=== PATIENT | female | born 1980 | race Caucasian/White ===

== ENCOUNTER 2016-08-18 10:49 | Emergency (ER) | payer SELFPAY ==
[~2016-08-18] VITALS: Ht 162.6 cm; Wt 87.8 kg
[~2016-08-18 10:49] MED LIST: PRED20 PO
[2016-08-18 11:01] VITALS: BP 131/91; PULSE 107; RESP 16; TEMP 99.6; O2SAT 98
--- NOTE | 2016-08-18 11:33 | PD ---
HPI Chief Complaint: Cold / Flu Symptoms Time Seen by Provider: 11:32 Travel History International Travel<30 days: No Contact w/Intl Traveler<30days: No Traveled to known affect area: No History of Present Illness HPI 35-year-old female with PMH of lupus presents to ED for evaluation of less than 48 hour history of sore throat, right ear pain, clear rhinorrhea, nonproductive cough and subjective fevers. Patient states she was feeling well yesterday morning, symptoms developed during the course of the day. She states that she coughed "all night" which kept her from sleeping. She states that she treated with aspirin with no improvement of symptoms. Denies sick contacts. Patient is a current smoker. Patient takes no daily medications. PFSH Past Medical History Anemia: Yes Asthma: Yes (SEASONAL) Depression: Yes (MANIC DEPRESSIVE) Diminished Hearing: No Genitourinary: Yes (KIDNEY INFECTIONS) Headaches: Yes Immune Disorder: Yes (LUPUS) Immunizations Current: Yes Migraines: Yes Pneumonia: Yes Tetanus Vaccination: < 5 Years Influenza Vaccination: Yes ?: Not LMP: 08/12/16 : 2 Para: 2 Ovarian Cysts: Yes Tubal Ligation: Yes Past Surgical History Abdominal Surgery: Yes (C-SEC X 2) Section: Yes (X 2) Social History Alcohol Use: Yes (occas. mix drink) Tobacco Use: Yes (4-5 cigs a day) Substance Use: No Allergies-Medications (Allergen,Severity, Reaction): Coded Allergies: Benadryl (Verified Allergy, Severe, "JITTERY AND SLEEPY AT SAME TIME", 03/27) Reported Meds & Prescriptions Reported Meds & Active Scripts Active Tessalon Perles (Benzonatate) 100 Mg Cap 200 Mg PO HS Review of Systems Except as stated in HPI: all other systems reviewed are Neg Physical Exam Narrative GENERAL: Well-nourished, well-developed white female in no acute distress. SKIN: Warm and dry. HEAD: Normocephalic. Atraumatic. EYES: No scleral icterus. No injection or drainage. PERRLA. EOMI. ENT: Air-fluid level present in the right tympanic membrane. Pearly escamilla tympanic membrane on the left. Nasal mucosa is moist. Posterior oropharynx with moderate erythema. Tonsils 1+ bilaterally. No edema or exudate. Uvula midline. Airway patent. NECK: Supple, trachea midline. No JVD. ++ Right-sided submandibular lymphadenopathy. CARDIOVASCULAR: Regular rate and rhythm without murmurs, gallops, or rubs. No carotid bruits. 2+ DP and radial pulses bilaterally. RESPIRATORY: Breath sounds clear and equal bilaterally. No accessory muscle use. GASTROINTESTINAL: Abdomen soft, non-tender, nondistended. + Bowel sounds MUSCULOSKELETAL: No cyanosis, or edema. Patient is ambulatory, walks with a normal gait. BACK: Nontender without obvious deformity. No CVA tenderness. Data Data Last Documented VS Vital Signs Date Time Temp Pulse Resp B/P Pulse Ox O2 Delivery O2 Flow Rate FiO2 08/18/16 11:09 16 98 Room Air 08/18/16 11:01 99.6 107 131/91 Orders Group A Rapid Strep Screen (08/18/16 11:38) Strep Culture (Group A) (08/18/16 11:45) MDM Medical Decision Making Medical Screen Exam Complete: Yes Emergency Medical Condition: Yes Differential Diagnosis Viral syndrome versus pharyngitis versus strep pharyngitis versus other Narrative Course 35-year-old female with PMH of lupus presents to ED for evaluation of less than 48 hour history of sore throat, right ear pain, clear rhinorrhea, nonproductive cough and subjective fevers. She states that she coughed "all night" which kept her from sleeping. Treated with aspirin with no improvement of symptoms. Denies sick contacts. Patient is a current smoker. Vitals reviewed. Physical exam reveals a nontoxic-appearing white female in no acute distress. There is air-fluid level behind the right tympanic membrane. Posterior oropharynx is moderately erythematous. Tonsils 1+ bilaterally. Uvula midline. Positive right sided submandibular lymphadenopathy. Chest clear to auscultation bilaterally. Remaining physical exam is unremarkable. Rapid strep swab negative. This is viral syndrome. I discussed symptomatic care with the patient. Prescribed a few doses of Tessalon Perles to be taken before bedtime to soothe coughing. Patient is instructed to follow up with her PCP. She indicated understanding of the instructions and is amenable to the plan of care. She is stable and discharged home. Diagnosis Primary Impression: Viral syndrome Referrals: Primary Care Physician Patient Instructions: General Instructions, Viral Syndrome (ED) Additional Instructions: Rest, hydrate. Push fluids such as sports drinks, Pedialyte, popsicles, clear broth. Consider adding a second generation antihistamine such as Janette, Zyrtec daily medications. Tessalon Perles 30 minutes before bedtime to soothe the urge to cough. Alternating Motrin and Tylenol every 4-6 hours as needed for continued fever. Increase handwashing frequently to avoid the spread of the virus to other family members and the community. Disinfect commonly touched surfaces such as light switches, microwaves, remote controls. Replace toothbrush at the end of this illness. Follow-up with the primary care provider this week. Return to the ED for any urgent or emergent medical condition. Med/Other Pt SpecificInfo: Prescription(s) given Scripts Benzonatate (Tessalon Perles)100 Mg Qhy115 Mg PO HS #7 CAP Ref 0 Prov:Heidy Springer MD 08/18/16 Disposition: 01 DISCHARGE HOME Condition: Stable Kisha Burton Aug 18, 2016 11:32
[2016-08-18] MEDS ORDERED: BENZ100 PO (12:14)
== END 2016-08-18 12:33 | disposition home or self-care (01) ==
LOC: PHEFT 10:49
DX: B34.9 Viral infection, unspecified (principal); J45.909 Unspecified asthma, uncomplicated; M32.9 Systemic lupus erythematosus, unspecified; F17.210 Nicotine dependence, cigarettes, uncomplicated
CPT/HCPCS: 87081; 87880; 99283